=== PATIENT | male | born 2005 | race Caucasian/White ===

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

== ENCOUNTER 2025-10-02 11:16 | Day surgery (SDC) | payer OTHER, SELFPAY ==
[2025-10-02] VITALS (11 sets, daily range): BP systolic 114–139; BP diastolic 68–87; PULSE 60–85; RESP 14–20; TEMP 36.2–36.3; O2SAT 85–100; BMI 26.6
[2025-10-02] MEDS: Lactated Ringers 1,000 ML 15 ML IV (12:00)
--- NOTE | 2025-10-02 12:28 | PCM.PRE.AN2 ---
ASA Classification* ASA Classification ASA Classification: 1 Assessment & Plan Anesthesia* Anesthesia Assessment Anesthesia Assessment: Discussed sedation and/or anesthesia options, risks, benefits, and alternatives with patient/parents/legal guardian/POA. Questions invited. The patient/parents/legal guardian/POA seems to understand and agrees to proceed with anesthesia plan. Reviewed the physical assessment, medical history, allergy history and patient home medications list prior to surgery/procedure/anesthetic and documented any changes. Performed airway and anesthesia risk assessments. 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 When Was Last Pacemaker Check QUESTION #4 FULL TEXT: You/Your Family Experience fever (hyperthermia) with Anesthesia Last Oral Intake Last Oral intake: Last Oral Intake NPO since 22:40 10/02/25 11:52 Meds taken in AM with sips of No 10/02/25 11:52 water? Meds patient instructed to take am of surgery PONV PONV - music theory teacher: PONV - music theory teacher Female No 09/26/25 14:41 HX of Motion Sickness No 09/26/25 14:41 HX of N/V After Surgery No 09/26/25 14:41 Non-Smoker Yes 09/26/25 14:41 Duration of Surgery greater No 09/26/25 14:41 than 60 minutes Number of Risk Factors 1 09/26/25 14:41 PONV Score Low Risk 09/26/25 14:41 Height & Weight Height & Weight: Anesthesia: Height & Weight Height 5 ft 9 in 10/02/25 11:52 Weight: 82.024 kg 10/02/25 11:52 Body Mass Index (BMI) 26.6 10/02/25 11:52 Respiratory Assessment Respiratory Assessment - music theory teacher: Respiratory Tract Infection Hx - music theory teacher Hx Respiratory Tract Infection No 09/26/25 14:41 STOP Sleep Apnea STOP Sleep Apnea - music theory teacher: STOP Sleep Apnea - music theory teacher Hx Hypertension No 09/26/25 14:41 Hx Sleep Apnea No 09/26/25 14:41 CPAP No 09/26/25 14:41 BIPAP Do you snore loudly (louder No 09/26/25 14:41 than talking or can be heard Do you often feel tired/ No 09/26/25 14:41 fatigued/ sleepy during daytime? Has anyone observed you stop No 09/26/25 14:41 breathing during sleep? STOP Results Negative 09/26/25 14:41 QUESTION #5 FULL TEXT : Do you snore loudly (louder than talking or can be heard through closed doors)? Tobacco Use History Tobacco Use History - music theory teacher: Tobacco Use History - music theory teacher Tobacco Use Smoking Status Never smoker 09/26/25 14:41 Hx Tobacco Use No 09/26/25 14:41 Years Smoking Packs Smoked per Day Smoking Cessation Date was within the last 15 years Hx Smoking Cessation Date Hx Smoking Cessation Counseling Hematologic Medial History Hematologic Hx - music theory teacher: Hematologic Medical Hx - gynecologist Hx of Blood Transfusion No 09/26/25 14:41 Hx of Transfusion in last 3 No 09/26/25 14:41 Months Date of Last Transfusion (if within last 3 months) Ever experience any problems No 09/26/25 14:41 with transfusion(s)? Specify any problems Hx of Preganancy in last 3 N/A 09/26/25 14:41 Months Nurse Filling Out Transfusion VCHRISTIN 09/26/25 14:41 & Questions: Date: 09/26/25 09/26/25 14:41 Time: 14:41 09/26/25 14:41 Patient unable to answer at this time (ie. confused, unrespo /Reproduction History /Reproductive History - music theory teacher: /Reproductive Hx- music theory teacher Hx Now No 09/26/25 14:41 Gestational Age (in weeks): EDC: Hx Hx Para Hx Section SAB No 09/26/25 14:41 Does the father of the baby or his family experience fever w Father of the baby Malignant Hypertension history comment Active Medications Active Medications: Current Medications Generic Name Dose Route Start Last Admin Trade Name Freq PRN Reason Stop Dose Admin Lactated Ringer's 1,000 mls @ 15 mls/hr 10/02/25 12:00 10/02/25 12:00 IV 15 mls/hr .Q48H ERLIN Administration PFSH Medical History Non-smoker Pilonidal cyst Home Medications ?Medication ?Instructions ?Recorded ?Last Taken ?Type NK 07/22/22 Unknown History Allergy/AdvReac Type Severity Reaction Status Date / Time No Known Allergies Allergy Verified 09/26/25 14:35 Surgical History History of incision and drainage History of surgical removal of pilonidal cyst History of excision of pilonidal cyst (~04/2022) History of removal of retained hardware History of ankle surgery Social History Smoking Status: Never smoker alcohol intake: never substance use type: does not use Review of Systems (Anesthesia) ROS Narrative System reviewed and no additional complaints, except as documented.
--- NOTE | 2025-10-02 12:34 | HP.PCM_ITS ---
History and Physical Date of Admission: 10/02/25 Intake Vital Signs 01/02/2309:05 Height 5 ft 5 in Intake Visit Reasons: NON INFECTED PILONIDAL Chief Complaint: pilonidal draining Hospice Coordinator Required: No Is patient in pain?: No Allergies No Known Allergies Allergy (Verified 08/08/25 14:38) Medications ?Medication ?Instructions ?Recorded ?Confirmed ?Type NK 07/22/22 08/08/25 History Have you fallen in the past year?: No PFSH Medical History Non-smoker Pilonidal cyst Surgical History History of incision and drainage History of surgical removal of pilonidal cyst History of excision of pilonidal cyst (~04/2022) History of removal of retained hardware History of ankle surgery Social History Smoking Status: Never smoker alcohol intake: never substance use type: does not use HPI HPI HPI: Patient is a 20-year-old male with recurrent pilonidal cyst. He reports that has been draining clear liquid for the past 6 months and it started to turn bloody. ROS General General: No weight change, appetite, fatigue, colon cancer, breast cancer or weakness HEENT HEENT: No difficulty swallowing, eye injury, eye surgery, swollen glands or hoarseness Endo Endocrine: No thyroid disease, diabetes mellitus, thyroid cancer, Hair loss, heat intolerance or cold intolerance Skin Skin: No rash or changing moles Musc Musculoskeletal: No back problems, arthritis, rheumatoid arthritis, gout or joint pain Cardio Cardiovascular: No murmur, pacemaker, heart disease, atrial fibrillation, high blood pressure, heart attack, heart stent, palpitations, shortness of breath with exertion or chest pain Psych Psychiatric: No depression, anxiety or hearing voices Resp Respiratory: No shortness of breath, No sleep apnea, No cough, No COPD, No asthma, No emphysema and No wheezing Gastro Gastrointestinal: No abdominal pain, No nausea or vomiting, No diarrhea, No constipation, No blood in stool, No acid reflux, No hemorrhoids, No ulcers, No gallbladder problem and No black,tarry stools Marko Hematologic: No blood thinners, No blood disorders, No bleeding, No anemia and No blood clots Neuro Neurologic: No system reviewed and no additional complaints, except as documented, No as per HPI, No abnormal gait, No abnormal hearing, No abnormal movements, No abnormal speech, No behavioral changes, No burning sensations, No confusion, No convulsions, No disequilibrium, No dizziness, No localized weakness, No frequent falls, No headache(s), No lack of coordination, No loss of vision, No memory loss, No numbness, No other visual disturbances, No radicular pain, No restless legs, No sensory deficit, No syncope, No tingling, No tremor(s), No weakness and No other Exam Const General: cooperative Orientation: alert and oriented x3 HENMT Head: normal to inspection Neck Neck: normal visual inspection and full ROM Chest Chest palpation & inspection: normal inspection of the chest Resp Effort & Inspection: normal respiratory effort Auscultation: clear to auscultation bilaterally Cardio Rate: regular rate Rhythm: regular rhythm GI Inspection: non-distended Palpation: soft and nontender Skin General: no rashes or lesions noted Neuro General: patient alert and patient oriented x3 Extrem General: full ROM Psych Appearance: grossly normal Mental Status: mental status grossly normal Assessment and Plan Assessment and Plan (1) Pilonidal cyst: Status: Acute Plan: The patient had pilonidal cyst excision in the past. In the past I made an off midline incision and that off midline incision appears healed with no drainage. The drainage is coming from the sinus in the midline. I would like to take him back to surgery and create a midline incision and excise what ever is underneath the sinus I discussed this with him in detail. I discussed the risks including but not limited to bleeding, infection, nonhealing of wound or need for packing. Patient understands and is willing to proceed. Tito Philip MD Pager: [facility] [address] [place] [address], [address] [place] [address] Office: I have examined the patient and the H&P has been reviewed. There are no clinical changes since date of exam.
[2025-10-02] MEDS: Midazolam 2 MG/2 ML Syringe IV (12:57)
[2025-10-02] MEDS: Lactated Ringers 1,000 ML 1000 ML IV (12:58)
--- NOTE | 2025-10-02 13:00 | PILCYST_PTH ---
PATIENT: BRYAN MINAYA [place] [facility] [facility] [place][id number] AGE/SX: 20/M ROOM: RE10/02/[address]: Dr. Bryan Philip MD : 2005 BED: DIS: 10/02/2025 SPEC #: [id number] RECD: 10/02/25 13:39 STATUS: BRIDGET REQ #: [id number] SEPIDEH: 10/02/25 13:[address]: Bryan Philip DEPT: SURGICAL PATHOLOGY RECD BY: Sanju Nunes ENTERED: 10/03/25 11:04 SP TYPE: Pilonidal OTHR DR: Dr. Terell Gomez MD Tissues: A - PILONIDAL TISSUE Procedures: Surgery Specimen Level III HEADER OPERATION: Excision, recurrent pilonidal cystectomy PRE-OP DIAGNOSIS: Pilonidal cyst TISSUE SUBMITTED: A. Pilonidal cyst MICROSCOPIC DIAGNOSIS A. Soft tissue, pilonidal cyst, excision: - Fibroadipose tissue with vascular congestion. MICROSCOPIC DESCRIPTION Slides are reviewed. GROSS DESCRIPTION A. Received in formalin labeled with the patient's name and date of . Designated as pilonidal cyst is a 2.1 x 1.3 x 1.3 cm eason-pink to yellow, lobulated soft and cauterized portion of tissue. Sectioning reveals eason-yellow lobulated cut surfaces with a 0.5 x 0.4 cm possible cyst wall devoid of contents. Entirely submitted in 1 cassette. MO 10/03/2025 CPT:85570
[2025-10-02] MEDS: Lidocaine 1% (5 ml sdv) 5 ML Vial IV (13:01)
[2025-10-02] MEDS: fentaNYL 100 MCG/2 ML Ampul IV (13:01)
--- NOTE | 2025-10-02 13:33 | OP.PCM_ITS ---
Operative Report (Standard) Operative Information Date of Procedure: 10/02/25 Pre-Operative Diagnosis: Recurrent pilonidal cyst Post-Operative Diagnosis: Recurrent pilonidal cyst Surgery/Procedure Performed: Recurrent pilonidal cystectomy tube fitter: Yes Pipe Organ Mechanic: Shell Jones Tasks completed by licensed nursing assistant: Opening & closing and Retracting Type of Anesthesia: General/Regional RN Documented Start/Stop Times: Operation Date: 10/02/25 13:00 Case Time Into Pre-Op 10/02/25 11:30 Out of Pre-Op 10/02/25 12:54 Anesthesia Start 10/02/25 12:57 Into Room 10/02/25 12:57 Procedure Start 10/02/25 13:18 Procedure End 10/02/25 13:27 Procedure Start Time: :18 Procedure Stop Time: 13:27 Select all DRAINS/GRAFTS/IMPLANTS that apply: None Estimated Blood Loss: 5 Specimen collected: Yes Description of specimen(s) removed: Pilonidal cyst Description of surgery: Patient was brought back to the operating room and general anesthesia was induced. The patient was then placed in a prone jackknife position. The area was prepped and draped in the usual sterile fashion. The midline was injected with local anesthetic and then an incision was made right over the sinus. The sinus was followed down to the cyst and the cyst was removed circumferentially using electrocautery dissection down to the bone. The area was irrigated and suctioned dry. Electrocautery was used to maintain hemostasis. Once there was good hemostasis it was rinsed once more and suctioned dry. The deep tissue was closed with 3-0 Vicryl suture and the skin was closed with interrupted 3-0 nylon sutures. Dressing was applied the patient was awoken and taken to PACU in stable condition. Surgical Findings: Pilonidal cyst Complications Complications: No Admit VTE Documentation VTE Mechan Device Prophylaxis: SCD's
--- NOTE | 2025-10-02 13:35 | DCINST_ITS ---
Discharge Instructions Diet Discharge Diet: Light diet - advance as tolerated Activity Discharge Activity: Return to Normal Activity, May Not Drive (while you are taking narcotic pain medications. Do not drive, work with heavy equipment or sign legal documents for 24 hours after your surgery.) and May Shower May resume sexual activity in: No Restrictions Lifting Restrictions: 15 pounds for 1 week Additional Activity Instructions:: Sit on something soft and try to limit bending and stretching Dressing / Incision Call your doctor if your incision/area has: Continuous Slow Oozing, Sudden Increased Bleeding, Increased Pain/ Swelling, Increased Redness, Foul Smelling Discharge and Swelling at the incision site Call your doctor if you observe: Fever of 101 or Higher and Uncontrolled pain Remove Dressing in: 1 day Cleanse incision/area with: Soap & Water Additional Dressing/Incision Instructions:: Alternate ibuprofen and Tylenol for pain control, oxycodone for breakthrough pain Follow Up Care Please Follow Up With: Tito Philip MD When: Please call to schedule 2 week follow up appointment. [phone] Test Results: Test results from this visit will be discussed in further detail at your follow- up appointment, if applicable. Discharge Plan Admission Attending Provider: Tito Philip Primary Care Provider: Terell Gomez Instructions Print Language: Turkmen Discharge Orders/Prescriptions Prescriptions: New oxycodone 5 mg Tablet 5 - 10 mg PO Q4H PRN PRN (Reason: Pain Score 4-10) 5 Days Qty: 14 0RF Referrals / Follow Up: Terell Gomez MD [Primary Care Provider, Family Practice] Disposition Disposition (needs filled in before D/C Order can be placed): Home, Self Care
--- NOTE | 2025-10-02 13:46 | PCM.POST.ANE ---
Anesthesia: Postop Eval I Current Vital Signs Temperature: 97.1 F Pulse Rate: 85 Blood Pressure: 139/83 Respiratory Rate: 20 Pulse Ox: 96 Oxygen Delivery Method: Nasal Cannula Oxygen Flow Rate (L/min): 2 Assessment Airway patent: Yes Spontaneous unlabored respirations: Yes Mental status: Awake and Calm nausea: No Vomiting: No Anesthesia Complication: No Fluid Hydration Crystalloid volume administer (ml): 700 Total IV fluid infused: 700 Progress Note Anesthesia document: Postop Eval 1 completed: Yes
--- NOTE | 2025-10-02 14:47 | POSTOPAN2_ITS ---
Anesthesia Postop Eval I Sum Postop Eval Completion status Anesthesia document: Postop Eval 1 completed: Yes Anesthesia Postop Eval I Summary Anesthesia Postop Eval I Summary: Anesthesia Postop Eval I: Assessment Summary Airway patent Yes 10/02/25 13:46 [email or web address] Spontaneous unlabored Yes 10/02/25 13:46 [email or web address] respirations Mental status Awake,Calm 10/02/25 13:46 [email or web address] nausea No 10/02/25 13:46 [email or web address] Vomiting No 10/02/25 13:46 [email or web address] Anesthesia Postop Eval I: Fluid Summary Crystalloid volume administer 700 10/02/25 13:46 [email or web address] (ml) Colloids volume administered ( ml) Blood Product volume administered (ml) Total IV fluid infused 700 10/02/25 13:46 [email or web address] Anesthesia Postop Eval I: Summary Notes Anesthesia Complication No 10/02/25 13:46 [email or web address] Anesthesia Complication Comment: Post-operative progress note Anesthesia: Postop Eval II Evaluation Mental status: Awake and Calm Pain Level: 1 nausea: No Vomiting: No Complications Anesthesia Complication: No
--- NOTE | 2025-10-02 14:47 | PCM.POSTANE2 ---
Anesthesia Postop Eval I Sum Postop Eval Completion status Anesthesia document: Postop Eval 1 completed: Yes Anesthesia Postop Eval I Summary Anesthesia Postop Eval I Summary: Anesthesia Postop Eval I: Assessment Summary Airway patent Yes 10/02/25 13:46 [email or web address] Spontaneous unlabored Yes 10/02/25 13:46 [email or web address] respirations Mental status Awake,Calm 10/02/25 13:46 [email or web address] nausea No 10/02/25 13:46 [email or web address] [email or web address] Vomiting No 10/02/25 13:46 [email or web address] Anesthesia Postop Eval I: Fluid Summary Crystalloid volume administer 700 10/02/25 13:46 [email or web address] (ml) Colloids volume administered ( ml) Blood Product volume administered (ml) Total IV fluid infused 700 10/02/25 13:46 [email or web address] Anesthesia Postop Eval I: Summary Notes Anesthesia Complication No 10/02/25 13:46 [email or web address] Anesthesia Complication Comment: Post-operative progress note Anesthesia: Postop Eval II Evaluation Mental status: Awake and Calm Pain Level: 1 nausea: No Vomiting: No Complications Anesthesia Complication: No
== END 2025-10-02 15:42 | disposition home or self-care (01) ==
LOC: SDC 11:18 → AC 11:19
PROVIDERS: PCP Family Medicine; Referring Provider Surgery; Visit Provider Surgery
PROC: (CPT 11770; principal; 2025-10-02 12:45)
DX: L05.91 Pilonidal cyst without abscess (principal)
CPT/HCPCS: 11770; 00300; 88304; J0525; J2405